=== PATIENT | female | born 1995 | race Caucasian/White ===

== ENCOUNTER 2019-07-10 05:42 | Inpatient (IN) ==
[2019-07-10] MEDS: LACTATED RINGERS 1,000 ML IV SCH ×3 (06:05→12:10)
[2019-07-10] MEDS ORDERED: MEPERIDINE 50 MG/1 ML VIAL IV PRN (06:15)
[2019-07-10] MEDS ORDERED: ONDANSETRON 4 MG/2 ML VIAL IV PRN ×3 (06:15→18:31)
[2019-07-10 06:28] LABS: Basophils % 0.3 % (0.0-0.8); Eosinophils # 0.1 10*3/uL (0.0-0.87); Hematocrit 34.9 VOL% (35.7-47.0); Immature Granulocytes % 0.7 %; Lymphocytes # 2.5 10*3/uL (1.4-4.0); Lymphocytes % 18.8 % (21.3-54.2); Mean Corpuscular HGB Conc 34.4 GM/DL (32-36); Mean Corpuscular Volume 92.6 FL (87-102); Mean Platelet Volume 9.9 FL (9.6-12.0); Monocytes % 5.1 % (1.7-12.7); Neutrophils % 74.1 % (38.7-73.9); Platelet Count 251 T/CUMM (130-400); Red Blood Count 3.77 MC/CUMM (3.8-5.5); Red Cell Distribution Width 12.7 % (9.3-17.3); White Blood Count 13.4 T/CUMM (4-12)
[2019-07-10] MEDS ORDERED: OXYTOCIN/LR 20 UNIT/1,000 ML BAG IV SCH (06:30)
[2019-07-10] MEDS ORDERED: diphenhydrAMINE 50 MG/1 ML VIAL IV PRN ×2 (07:45)
[2019-07-10] MEDS ORDERED: NALOXONE 0.4 MG/ML VIAL IV PRN (07:45)
[2019-07-10] MEDS ORDERED: ePHEDrine 50 MG/ML AMP IV PRN (07:45)
[2019-07-10] MEDS ORDERED: CITRIC ACID/SODIUM CITRATE 30 ML UDCUP PO ONE (07:46)
[2019-07-10] MEDS ORDERED: FAMOTIDINE 20 MG/2 ML VIAL IV ONE (07:46)
[2019-07-10] MEDS ORDERED: LACTATED RINGERS 1,000 ML IV SCH (08:00)
[2019-07-10] MEDS ORDERED: fentaNYL 2 MCG/ROPIV 0.2% EPID 100 ML EPIDURAL SCH (08:00)
[2019-07-10] MEDS ORDERED: LIDOCAINE 1% 50 ML VIAL ONE (10:31)
[2019-07-10] MEDS ORDERED: TRANEXAMIC ACID 1,000 MG/10 ML VIAL ONE (10:31)
[2019-07-10] MEDS ORDERED: METHYLERGONOVINE 0.2 MG/1 ML AMP ONE (10:32)
[2019-07-10] MEDS ORDERED: CARBOPROST TROMETHAMINE 250 MCG/ML AMP IM ONE (10:32)
[2019-07-10] MEDS ORDERED: miSOPROStoL 200 MCG TABLET ONE (13:47)
[2019-07-10] MEDS ORDERED: miSOPROStoL 200 MCG TABLET VAG ONE (13:56)
[2019-07-10] MEDS ORDERED: METHYLERGONOVINE 0.2 MG/1 ML AMP IM ONE (13:56)
[2019-07-10] MEDS ORDERED: LANOLIN 50% CREAM 0.3 OZ TUBE TOP PRN ×2 (15:22→18:31)
[2019-07-10] MEDS ORDERED: DIPH/TET/ACEL PERT BOOSTER VACCINE 0.5 ML VIAL IM ONE (15:22)
[2019-07-10] MEDS ORDERED: HYDROCORTISONE 2.5% RECTAL CREAM 30 GM TUBE TOP PRN ×2 (15:22→18:31)
[2019-07-10] MEDS ORDERED: MEASLES/MUMPS/RUBELLA VACCINE 0.5 ML VIAL SUBCUT ONE (15:22)
[2019-07-10] MEDS ORDERED: BENZOCAINE 20%/MENTHOL 0.5% SPRAY 56 GM CAN TOP PRN ×2 (15:22→18:31)
[2019-07-10] MEDS ORDERED: BISACODYL 10 MG SUPP RECTAL PRN ×2 (15:22→18:31)
[2019-07-10] MEDS ORDERED: RHO(D) IMMUNE GLOBULIN 300 MCG SYRINGE IM ONE ×2 (15:22→18:31)
[2019-07-10] MEDS ORDERED: WITCH HAZEL PADS 100/JAR TOP PRN (15:22)
[2019-07-10] MEDS ORDERED: OXYTOCIN/LR 20 UNIT/1,000 ML BAG IV ONE ×2 (15:22→18:31)
[2019-07-10] MEDS ORDERED: ACETAMINOPHEN 325 MG TABLET PO PRN ×2 (15:22→18:31)
[2019-07-10] MEDS ORDERED: oxyCODONE/ACETAMINOPHEN 5-325 MG TABLET PO PRN ×3 (15:22→18:31)
[2019-07-10] MEDS: IBUPROFEN 800 MG TABLET PO PRN (15:39)
[2019-07-10] MEDS: oxyCODONE/ACETAMINOPHEN 5-325 MG TABLET PO PRN (18:14)
[2019-07-10] MEDS ORDERED: IBUPROFEN 800 MG TABLET PO PRN (18:31)
[2019-07-10] MEDS ORDERED: DOCUSATE SODIUM 100 MG CAPSULE PO SCH (21:00)
[2019-07-10] MEDS ORDERED: LORazepam 0.5 MG TABLET PO ONE (21:21)
[2019-07-10] MEDS: DOCUSATE SODIUM 100 MG CAPSULE PO SCH (21:46)
[2019-07-11] MEDS: IBUPROFEN 800 MG TABLET PO PRN ×3 (02:05→22:40)
[2019-07-11] MEDS: oxyCODONE/ACETAMINOPHEN 5-325 MG TABLET PO PRN (02:05)
[2019-07-11 04:58] LABS: Basophils # 0.1 10*3/uL (0.0-0.2); Basophils % 0.4 % (0.0-0.8); Eosinophils # 0.2 10*3/uL (0.0-0.87); Eosinophils % 0.9 % (0.00-10.9); Hematocrit 28.9 VOL% (35.7-47.0); Hemoglobin 9.7 GM/DL (12.0-16.0); Immature Granulocytes % 0.7 %; Immature Granulocytes Absolute 0.12 #; Lymphocytes # 2.2 10*3/uL (1.4-4.0); Lymphocytes % 12.7 % (21.3-54.2); Mean Corpuscular HGB Conc 33.6 GM/DL (32-36); Mean Corpuscular Volume 93.5 FL (87-102); Mean Platelet Volume 10.2 FL (9.6-12.0); Monocytes % 4.7 % (1.7-12.7); Neutrophils % 80.6 % (38.7-73.9); Platelet Count 197 T/CUMM (130-400); Red Blood Count 3.09 MC/CUMM (3.8-5.5); Red Cell Distribution Width 12.7 % (9.3-17.3); White Blood Count 17.4 T/CUMM (4-12)
[2019-07-11] MEDS: DOCUSATE SODIUM 100 MG CAPSULE PO SCH ×2 (08:53→20:24)
[2019-07-11] MEDS: SERTRALINE 50 MG TABLET PO SCH (08:53)
[2019-07-12] MEDS: IBUPROFEN 800 MG TABLET PO PRN ×2 (05:16→10:35)
[2019-07-12] MEDS ORDERED: INFLUENZA VIRUS VACCINE 0.5 ML SYRINGE IM ONE (08:00)
[2019-07-12 08:55] VITALS: BP 96/65
[2019-07-12] MEDS: DOCUSATE SODIUM 100 MG CAPSULE PO SCH (09:35)
[2019-07-12] MEDS: SERTRALINE 50 MG TABLET PO SCH (09:35)
== END 2019-07-12 13:05 | disposition home or self-care (01) | DRG 560 ==
LOC: N.LDOUT 05:42 → N.LD 05:43 → N.OB 16:49
PROVIDERS: ADMIT Specialist; ATTEND Specialist